=== PATIENT | female | born 1965 | race Caucasian/White ===

== ENCOUNTER 2024-12-31 06:18 | Day surgery (SDC) | payer BC, OTHER ==
[~2024-12-31 06:18] MED LIST: Midazolam 1 MG/ML 2 ML SDV IV ONE; Midazolam 1 MG/ML 2 ML SDV ONE; fentaNYL 100 MCG/2 ML SDV IV ONE; fentaNYL 100 MCG/2 ML SDV ONE
[2024-12-31] MEDS: Dextrose 5%-0.45% NaCl 1,000 ML IV SCH (06:49)
[2024-12-31] MEDS: fentaNYL 100 MCG/2 ML SDV IV ONE ×4 (07:28→07:40)
[2024-12-31] MEDS: Midazolam 1 MG/ML 2 ML SDV IV ONE ×6 (07:29→07:38)
[2024-12-31 09:14] VITALS: BP 119/71; PULSE 66
== END 2024-12-31 09:59 | disposition home or self-care (01) ==
LOC: DL.ENDO 06:18
PROVIDERS: ATTEND Internal Medicine Gastroenterology
DX: Z12.11 Encounter for screening for malignant neoplasm of colon (principal); K57.30 Diverticulosis of large intestine without perforation or abscess without bleeding
CPT/HCPCS: J2250; J3010